=== PATIENT | female | born 1945 | race Caucasian/White ===

== ENCOUNTER → 2018-02-07 | Outpatient (CLI) | payer OTHER ==
[~2018-02-07] MED LIST: AUGMENTIN 875875 MG PO; FLONASE 0.05%50 MCG NASAL; GUAIFENESIN-CODE5 ML PO; HYDROCHLOROTHIA25 M2 PO; NORVASC2.5 MG PO; ZOCOR40 MG PO
== END ==
LOC: RAD 11:25
DX: Z12.31 Encounter for screening mammogram for malignant neoplasm of breast (principal)

== ENCOUNTER → 2018-02-18 | Outpatient (CLI) | payer OTHER | LOC: NUC 06:25 | DX: Z13.820 Encounter for screening for osteoporosis (principal); Z78.0 Asymptomatic menopausal state ==

== ENCOUNTER → 2018-09-03 | Outpatient (CLI) | payer OTHER ==
--- NOTE | ~2018-09-03 | EKG ---
[place] [address] [address] [facility] [place] [address] ELECTROCARDIOGRAM REPORT Name: MASHA JEFFREY Room #: REG CLI [id number] Admission: 09/03/18 Attend Phys: Physician not on staff Discharge: Date of : 47 Report #: [id number] THIS REPORT FOR: //name// [facility] Test Date: 2018-09-03 Test Time: 14:58:09 Pat Name: MASHA JEFFREY Department: Room: Gender: F Software Performance Engineer: Gillian GIFFORD : 1945 Requested By: Physician staff Order Number: [id number] MD: Nader Nance Measurements Intervals [place] Rate: 61 P: -22 MD: 141 QRS: -17 QRSD: 89 T: 20 QT: 406 QTc: 409 Interpretive Statements Sinus rhythm Poor R wave progression Compared to ECG 07/16/2009 08:47:34 No significant changes Electronically Signed On 09-03-2018 16:55:03 PATIENT CARE ASSISTANT by Nader Nance [email or web address] <ELECTRONICALLY SIGNED> By: Nader Nance MD, [facility] 09/03/18 1655 1458 1458 Nader Nance MD, FACC /EPI
== END ==
LOC: CV 14:28
DX: Z01.818 Encounter for other preprocedural examination (principal)

== ENCOUNTER → 2020-04-20 | Outpatient (CLI) | payer OTHER | LOC: RAD 08:41 | PROVIDERS: ATTEND Family Medicine | DX: Z12.31 Encounter for screening mammogram for malignant neoplasm of breast (principal) ==

== ENCOUNTER → 2020-11-19 | Outpatient (CLI) | payer OTHER | LOC: LAB 13:44 | PROVIDERS: ATTEND Family Medicine | DX: R10.9 Unspecified abdominal pain (principal); R31.9 Hematuria, unspecified; N39.0 Urinary tract infection, site not specified ==

== ENCOUNTER → 2020-11-23 | Outpatient (CLI) | payer OTHER | LOC: ULTRA 08:42 | PROVIDERS: ATTEND Family Medicine | DX: R93.89 Abnormal findings on diagnostic imaging of other specified body structures (principal); D25.9 Leiomyoma of uterus, unspecified; R10.9 Unspecified abdominal pain ==

== ENCOUNTER → 2020-11-26 | Outpatient (CLI) | payer OTHER | LOC: CAT 14:35 | PROVIDERS: ATTEND Family Medicine | DX: K76.89 Other specified diseases of liver (principal); J84.10 Pulmonary fibrosis, unspecified; M47.816 Spondylosis without myelopathy or radiculopathy, lumbar region; N85.8 Other specified noninflammatory disorders of uterus ==

== ENCOUNTER → 2021-04-15 | Outpatient (CLI) | payer OTHER ==
[2021-04-15 09:32] LABS: URINE BILIRUBIN NEGATIVE (Negative); URINE BLOOD TRACE (Negative); URINE CLARITY CLEAR; URINE COLOR YELLOW; URINE GLUCOSE-RANDOM* NEGATIVE (Negative); URINE KETONES NEGATIVE (Negative); URINE NITRITE-REFLEX NEGATIVE (Negative); URINE PROTEIN (DIPSTICK) NEGATIVE (Negative); URINE SPECIFIC GRAVITY <= 1.005 (1.005-1.035); URINE UROBILINOGEN 0.2 E.U./dl (0.2-1.0)
[2021-04-15 09:33] LABS: ABSOLUTE NEUTROPHILS 3.2 thou/uL (1.4-8.2); BASOPHILS 0.7 % (0.0-2.0); EOSINOPHILS 4.4 % (0.0-3.0); HEMATOCRIT 41.1 % (37.0-47.0); HEMOGLOBIN 13.4 gm/dL (12.0-15.0); LYMPHOCYTES 23.3 % (24.0-44.0); MCH 27.7 pg (26.0-34.0); MCHC 32.7 g/dL (28.0-37.0); MCV 84.8 fL (80.0-100.0); MONOCYTES 6.1 % (1.0-8.0); PLATELET COUNT 199 thou/uL (150-400); POLYS 65.5 % (36.0-66.0); RBC 4.84 mil/uL (4.20-5.00); RDW 14.2 % (10.5-14.5); WBC 4.8 thou/uL (4.0-11.0)
[2021-04-15 09:39] LABS: URINE LEUKOCYTES-REFLEX 3+ (Negative)
[2021-04-15 10:08] LABS: ALBUMIN 3.8 g/dL (3.4-5.0); ANION GAP 7 mmol/L (7-16); BUN 13 mg/dL (7-18); CALCIUM 9.5 mg/dL (8.5-10.1); CHLORIDE 103 mmol/L (98-107); CHOLESTEROL 195 mg/dL (<200); CO2 32 mmol/L (21-32); CREATININE 0.9 mg/dL (0.6-1.0); GLUCOSE 101 mg/dL (74-106); HDL CHOLESTEROL 76 mg/dL (>40); LDL CHOLESTEROL 105 mg/dL (<100); POTASSIUM 3.8 mmol/L (3.5-5.1); SGOT 16 U/L (15-37); SGPT 24 U/L (30-65); SODIUM 142 mmol/L (136-145); TC:HDL 2.6 Ratio (Not establshd); TOTAL BILIRUBIN 0.5 mg/dL (0.2-1.0); TOTAL PROTEIN 7.2 g/dL (6.4-8.2); TRIGLYCERIDE 73 mg/dL (<150); VLDL 15 mg/dL (<40)
[2021-04-15 10:22] LABS: CASTS None Seen /LPF (None Seen); SQUAMOUS 4-10 Moderate /LPF (0-3)
[2021-04-15 10:23] LABS: BACTERIA-REFLEX 1-9 Few /HPF (None Seen); CRYSTALS None Seen /LPF (None Seen); URINE RBC 1-2 Rare /HPF (NONE SEEN); URINE WBC-REFLEX 6-15 Few /HPF (0-5)
== END ==
LOC: LAB 08:36
PROVIDERS: ATTEND Family Medicine
DX: Z00.00 Encounter for general adult medical examination without abnormal findings (principal); I10 Essential (primary) hypertension; E78.2 Mixed hyperlipidemia; G56.01 Carpal tunnel syndrome, right upper limb

== ENCOUNTER → 2021-06-23 | Outpatient (CLI) | payer OTHER | LOC: CAT 08:16 | PROVIDERS: ATTEND Family Medicine | DX: K76.89 Other specified diseases of liver (principal); D73.89 Other diseases of spleen; I70.0 Atherosclerosis of aorta; K86.89 Other specified diseases of pancreas; I31.3 Pericardial effusion (noninflammatory) ==